=== PATIENT | male | born 1995 | race Caucasian/White ===

== ENCOUNTER → 2024-01-22 | Emergency (ER) | payer BC ==
[~2024-01-22] VITALS: Ht 175.3 cm; Wt 108.9 kg
[~2024-01-22] MED LIST: CEFTRIAXONE SODIUM 1,000 MG VIAL IM ONE; TETANUS & DIPHTHERIA TOX,ADULT 0.5 ML VIAL IM ONE
== END | disposition home or self-care (01) ==
LOC: ER 10:10
DX: S01.122A Laceration with foreign body of left eyelid and periocular area, initial encounter (principal); Y08.89XA Assault by other specified means, initial encounter; Y93.89 Activity, other specified; Y92.89 Other specified places as the place of occurrence of the external cause; S01.22XA Laceration with foreign body of nose, initial encounter